=== PATIENT | female | born 1965 | race American Indian/Alaskan Native ===

== ENCOUNTER 2016-12-08 11:16 | Day surgery (SDC) | payer MEDICARE ==
[2016-12-08] MEDS ORDERED: HEPARIN 10,000 UNITS/10 ML ONE (11:57)
[2016-12-08] MEDS ORDERED: MARCAINE 0.25% INFILTRATI ONE ×2 (11:57→15:36)
[2016-12-08] MEDS ORDERED: NACL 0.9% 250ML 250 ML ONE (11:57)
[2016-12-08] MEDS ORDERED: XYLOCAINE 1% 20 mL ONE (11:57)
[2016-12-08] MEDS ORDERED: GELFOAM TP ONE (11:58)
[2016-12-08] MEDS ORDERED: NACL 0.9% 1000 ML 1,000 ML ONE (12:51)
[2016-12-08] MEDS ORDERED: ANCEF/STERILE WATER 2 GM/20 ML IV NR (13:16)
--- NOTE | 2016-12-08 13:28 | Anesthesia Day of Surgery ---
Anesthesia Day of Surgery - Day of Surgery Patient Examined: Yes Patient H&P Reviewed: Yes Patient is NPO: Yes
--- NOTE | 2016-12-08 13:31 | Anesthesia Consultation ---
Anesthesia Consult and Med Hx Date of service: 12/08/16 - Airway Anesthetic Teeth Evaluation: Poor ROM Head & Neck: Adequate Mental/Hyoid Distance: Adequate Mallampati Class: Class II Intubation Access Assessment: Probably Good - Pulmonary Exam CTA: Yes - Pre-Operative Health Status ASA Pre-Surgery Classification: ASA3 Proposed Anesthetic Plan: General - Pulmonary Hx Smoking: No - Cardiovascular System Hx Hypertension: Yes - Other Systems Hx Cancer: Yes (Right sided Colon Ca. )
[2016-12-08] MEDS ORDERED: VERSED IV NR (14:00)
[2016-12-08] MEDS ORDERED: NACL 0.9% 1000 ML 1,000 ML IV SCH (14:00)
[2016-12-08] MEDS ORDERED: SUBLIMAZE ONE (15:04)
[2016-12-08] MEDS ORDERED: XYLOCAINE MPF 2% ONE (15:04)
[2016-12-08] MEDS ORDERED: DIPRIVAN 10 MG/ML IV ONE ×2 (15:05→15:31)
[2016-12-08] MEDS ORDERED: XYLOCAINE 1% 20 mL INFILTRATI ONE (15:36)
[2016-12-08] MEDS ORDERED: NACL 0.9% IR ONE (15:36)
[2016-12-08] MEDS ORDERED: HEPARIN 10,000 UNITS/10 ML 1,000 UNIT in NACL 0.9% 250ML 250 ML IR ONE (15:38)
--- NOTE | 2016-12-08 16:17 | Discharge Summary ---
Short Stay Discharge Plan Activity: advance as tolerated Wound: per your surgeon's advice Follow up with: PRIMARY CARE, [Primary Care Provider] - 7 Days
--- NOTE | 2016-12-08 16:19 | Post Anesthesia Evaluation ---
- Post Anesthesia Evaluation Patient Participated: Yes Airway Patent: Yes Stable Respiratory Function: Yes Temp > 96.8F: Yes Pain Manageable: Yes Adequeate Hydration: Yes Anesthesia Complications: No Block Receding Appropriately: Not Applicable
--- NOTE | 2016-12-08 16:57 | Fluoroscopy Report ---
Operative chest: Port placement. Portions of the upper chest including the mediastinum or included. Port was introduced through the left subclavian vein with the tip projecting over the right atrium. Both visualized lungs appear fully inflated the mediastinal contour is unremarkable.
[2016-12-08 17:03] VITALS: BP 170/94
--- NOTE | 2016-12-09 00:16 | Discharge Summary ---
FINAL DIAGNOSIS: Colon cancer with metastasis to the liver. This patient was seen by _ who asked me to see her for insertion of subcutaneous port. This was done today, 12/08/2016. Everything went fine. The patient was discharged home. I gave a prescription for Tylenol No. 3 to be taken 1 every 4 hours p.r.n. for pain and to see me or to call me in about 10 days and to see _ for the chemotherapy that she may need. JOB# [id number] KARINA/IVET KHAN
--- NOTE | 2016-12-09 00:43 | Operative Report ---
PREOPERATIVE DIAGNOSIS: Colon cancer, for insertion of subcutaneous port as per the recommendation of Dr. QUEVEDO. POSTOPERATIVE DIAGNOSIS: Colon cancer, for insertion of subcutaneous port as per the recommendation of . PROCEDURE: Insertion of subcutaneous port via left subclavian approach with use of C-arm. ANESTHESIA: Local standby. DESCRIPTION OF PROCEDURE: With the patient in supine position, cleansed and draped in usual fashion. I made an incision in the infraclavicular aspect of the left side. The needle was inserted towards the left subclavian vein which had a got a good backflow of venous blood. A guidewire was then inserted. It went in nicely following which a pocket was created in the insertion site to accommodate the system. The system was then assembled together and then a dilator was advanced in the usual fashion with use of the wire, it went in nicely, removing the wire, leaving the sheath through which I was able to introduce the tubing that went all the way to the superior vena cava with good backflow of venous blood via the port percutaneously. I was able to have 2 stitches to anchor the port and the pectoralis fascia. Once well satisfied, we had good hemostasis. Then, the wound was closed. I used for that purpose 2 x 2 and Tegaderm and the bandage. The patient was then transferred to the recovery room in good condition. JOB# [id number] KARINA/IVET KHAN
== END 2016-12-08 17:25 | disposition home or self-care (01) ==
LOC: OR 11:16
PROVIDERS: ATTEND Surgery
DX: C18.9 Malignant neoplasm of colon, unspecified (principal); C78.7 Secondary malignant neoplasm of liver and intrahepatic bile duct; I10 Essential (primary) hypertension; Z79.899 Other long term (current) drug therapy
CPT/HCPCS: 36561; 77001; C1788; J0690; J1644; J2250; J2704; J3010; J7030; J7050; A4649

== ENCOUNTER 2016-12-25 11:52 | Emergency (ER) | payer MEDICARE ==
[2016-12-25] MEDS ORDERED: TORADOL IV ONE (12:44)
[2016-12-25] MEDS ORDERED: MORPHINE IV ONE (12:44)
[2016-12-25] MEDS ORDERED: NACL 0.9% 1000 ML 1,000 ML IV ONE (12:44)
--- NOTE | 2016-12-25 12:52 | Emergency Department Report ---
ED General Adult HPI - General Chief complaint: Neck Pain/Injury Stated complaint: NECK/BACK PAIN Time Seen by Provider: 12/25/16 12:20 Source: patient Mode of arrival: Ambulatory Limitations: No Limitations - History of Present Illness Initial comments: 51-year-old female here with complaint of left-sided neck pain and malodorous discharge from vagina. Patient states that she had colon surgery 2 months ago at [facility]. Since that time she's been doing fairly well. She has no abdominal pain or nausea or vomiting. The last 2 weeks she has noticed some foul-smelling dark drainage from her vagina. No recent intercourse. She also complains of some neck pain. She had a port placed in her left neck approximately 2 weeks ago. She has full range of motion of the neck. There's been no trauma to her neck. -: Gradual Radiation: non-radiation Consistency: constant Improves with: none Worsens with: none Associated Symptoms: denies: confusion, chest pain, cough, diaphoresis, fever/ chills, headaches, loss of appetite, malaise, nausea/vomiting, rash, seizure, shortness of breath, syncope, weakness - Related Data Home Medications Medication Instructions Recorded Confirmed Last Taken Meclizine [Antivert] 25 mg PO TID PRN 10/03/15 10/03/15 12/07/16 Verapamil HCl [Verapamil ER PM] 200 mg PO QHS 10/03/15 10/03/15 12/07/16 Lisinopril 10 mg PO 12/08/16 12/07/16 Megestrol 12/08/16 12/07/16 traMADol [Ultram 50 MG tab] 50 mg PO DAILY 12/08/16 12/08/16 12/07/16 Previous Rx's Medication Instructions Recorded Last Taken Type amLODIPine [Norvasc] 5 mg PO DAILY #30 tab 10/03/15 12/07/16 Rx Levofloxacin [Levaquin TAB] 500 mg PO QDAY #10 tablet 12/25/16 Unknown Rx metroNIDAZOLE [Flagyl] 500 mg PO Q8HR #30 tablet 12/25/16 Unknown Rx Allergies Allergy/AdvReac Type Severity Reaction Status Date / Time No Known Allergies Allergy Verified 10/02/15 20:53 ED Review of Systems ROS: Stated complaint: NECK/BACK PAIN Other details as noted in HPI Comment: All other systems reviewed and negative Constitutional: denies: chills, fever Eyes: denies: eye pain, eye discharge, vision change ENT: denies: ear pain, throat pain Respiratory: denies: cough, shortness of breath, wheezing Cardiovascular: denies: chest pain, palpitations Endocrine: no symptoms reported Gastrointestinal: denies: abdominal pain, nausea, diarrhea Genitourinary: discharge (brownish vaginal discharge). denies: urgency, dysuria Musculoskeletal: denies: back pain, joint swelling, arthralgia Skin: denies: rash, lesions Neurological: denies: headache, weakness, paresthesias Psychiatric: denies: anxiety, depression Hematological/Lymphatic: denies: easy bleeding, easy bruising ED Past Medical Hx - Past Medical History Previous Medical History?: Yes Hx Hypertension: Yes Hx of Cancer: Yes Hx Asthma: Yes - Surgical History Past Surgical History?: Yes Additional Surgical History: fingerport to left chest - Family History Family history: no significant - Social History Smoking Status: Never Smoker Substance Use Type: None - Medications Home Medications: Home Medications Medication Instructions Recorded Confirmed Last Taken Type Meclizine [Antivert] 25 mg PO TID PRN 10/03/15 10/03/15 12/07/16 History Verapamil HCl [Verapamil ER PM] 200 mg PO QHS 10/03/15 10/03/15 12/07/16 History amLODIPine [Norvasc] 5 mg PO DAILY #30 tab 10/03/15 12/07/16 Rx Lisinopril 10 mg PO 12/08/16 12/07/16 History Megestrol 12/08/16 12/07/16 History traMADol [Ultram 50 MG tab] 50 mg PO DAILY 12/08/16 12/08/16 12/07/16 History Levofloxacin [Levaquin TAB] 500 mg PO QDAY #10 tablet 12/25/16 Unknown Rx metroNIDAZOLE [Flagyl] 500 mg PO Q8HR #30 tablet 12/25/16 Unknown Rx ED Physical Exam - General Limitations: No Limitations General appearance: alert, in no apparent distress - Head Head exam: Present: atraumatic, normocephalic - Eye Eye exam: Present: normal appearance. Absent: scleral icterus, conjunctival injection - ENT ENT exam: Present: mucous membranes moist - Neck Neck exam: Present: normal inspection, tenderness (tender in trapezius ). Absent: meningismus, full ROM, lymphadenopathy, thyromegaly - Respiratory Respiratory exam: Present: normal lung sounds bilaterally. Absent: respiratory distress, wheezes, rales - Cardiovascular Cardiovascular Exam: Present: regular rate, normal rhythm. Absent: systolic murmur, diastolic murmur, rubs, gallop - GI/Abdominal GI/Abdominal exam: Present: soft, distended, normal bowel sounds, other (well- healing midline abdominal incision). Absent: tenderness, guarding, rebound - Extremities Exam Extremities exam: Present: normal inspection, normal capillary refill - Back Exam Back exam: Present: normal inspection - Neurological Exam Neurological exam: Present: alert, oriented X3 - Psychiatric Psychiatric exam: Present: normal affect, normal mood - Skin Skin exam: Present: warm, dry, intact, normal color. Absent: rash ED Course Vital Signs 12/25/16 12/25/16 12/25/16 12:01 13:00 14:25 Temperature 98.4 F Pulse Rate 74 107 H Respiratory 16 16 16 Rate Blood Pressure 146/101 Blood Pressure 127/91 [Left] O2 Sat by Pulse 100 100 Oximetry 12/25/16 14:26 Temperature Pulse Rate Respiratory 16 Rate Blood Pressure Blood Pressure [Left] O2 Sat by Pulse Oximetry ED Medical Decision Making - Lab Data Result diagrams: 12/25/16 12:54 12/25/16 12:54 Laboratory Results - last 24 hr 12/25/16 12/25/16 12/25/16 12:54 12:54 12:54 WBC 8.9 RBC 4.57 Hgb 12.4 Hct 39.7 MCV 87 MCH 27 L MCHC 31 RDW 14.5 Plt Count 257 PT INR Sodium 137 Potassium 3.9 Chloride 99.1 Carbon Dioxide 22 Anion Gap 20 BUN 8 Creatinine 0.4 L Estimated GFR > 60 BUN/Creatinine Ratio 20.00 Glucose 101 H Lactic Acid 2.20 H* Calcium 9.3 Total Bilirubin 0.40 AST 14 ALT 7 Alkaline Phosphatase 73 Total Protein 7.3 Albumin 3.9 Albumin/Globulin Ratio 1.1 Urine Color Urine Turbidity Urine pH Ur Specific [place] Urine Protein Urine Glucose (UA) Urine Ketones Urine Blood Urine Nitrite Urine Bilirubin Urine Urobilinogen Ur Leukocyte Esterase Urine WBC (Auto) Urine RBC (Auto) U Epithel Cells (Auto) Urine Bacteria (Auto) Urine Mucus 12/25/16 12/25/16 12:54 13:57 WBC RBC Hgb Hct MCV MCH MCHC RDW Plt Count PT 14.8 INR 1.17 H Sodium Potassium Chloride Carbon Dioxide Anion Gap BUN Creatinine Estimated GFR BUN/Creatinine Ratio Glucose Lactic Acid Calcium Total Bilirubin AST ALT Alkaline Phosphatase Total Protein Albumin Albumin/Globulin Ratio Urine Color Tasha Urine Turbidity Cloudy Urine pH 5.0 Ur Specific [place] 1.030 Urine Protein 100 mg/dl Urine Glucose (UA) Neg Urine Ketones Neg Urine Blood Neg Urine Nitrite Neg Urine Bilirubin Neg Urine Urobilinogen 2.0 Ur Leukocyte Esterase Lg Urine WBC (Auto) > 182.0 H Urine RBC (Auto) 175.0 U Epithel Cells (Auto) 19.0 H Urine Bacteria (Auto) 1+ Urine Mucus 3+ - Medical Decision Making 51-year-old female here with likely musculoskeletal neck pain and an increasing malodorous discharge from the vagina. She states that she had surgery 2 months ago at [facility] for colon cancer. Her neck is likely musculoskeletal pain I am believe she has any evidence of venous thrombus or infectious process. She is tender in the trapezius muscle. Her abdominal exam is unremarkable. External section of her genitalia did not demonstrate significant amount of discharge with the patient mentioned. However given her symptoms I am concerned about the possibility of a enterovaginal fistula. Plan to CT with oral and IV contrast check labs and will reassess. Labs shows a number of WBCs in the patient's urine. CT pending. Spoke with Dr. Escamilla construction supervisor for the surgeon in [place]. She agrees with assessment to have the patient follow-up this week unless there is significant infection source in the abdomen. Agent with questionable abscess versus metastatic disease on CAT scan. I think that it is possible that abscess is less likely given the patient is afebrile without significant pain long discussion with patient regarding admission versus following up with her surgeon tomorrow. She would like to follow up with her surgeon tomorrow. We'll place the patient on oral narcotics and the patient will follow up. Portions of this chart were dictated with dictation software. There may be dictation errors contained within this note. Critical care attestation.: If time is entered above; I have spent that time in minutes in the direct care of this critically ill patient, excluding procedure time. ED Disposition Clinical Impression: UTI (urinary tract infection), Abdominal pain Disposition: DC- TO HOME OR SELFCARE Is pt being admited?: No Condition: Stable Additional Instructions: Please follow up with her surgeon tomorrow. Prescriptions: Levofloxacin [Levaquin TAB] 500 mg PO QDAY #10 tablet metroNIDAZOLE [Flagyl] 500 mg PO Q8HR #30 tablet Referrals: PRIMARY CARE, [Primary Care Provider] - 3-5 Days
[2016-12-25 13:25] LABS: Hematocrit 39.7 % (30.3-42.9); Hemoglobin 12.4 gm/dl (10.1-14.3); Mean Corpuscular HGB Conc 31 % (30-34); Mean Corpuscular Hemoglobin 27 pg (28-32); Mean Corpuscular Volume 87 fl (79-97); Platelet Count 257 K/mm3 (140-440); Red Blood Count 4.57 M/mm3 (3.65-5.03); Red Cell Distribution Width 14.5 % (13.2-15.2); White Blood Count 8.9 K/mm3 (4.5-11.0)
[2016-12-25 13:35] LABS: INR 1.17 (0.87-1.13)
[2016-12-25 13:50] LABS: Alanine Aminotransferase 7 units/L (7-56); Albumin 3.9 g/dL (3.9-5); Albumin/Globulin Ratio 1.1 %; Alkaline Phosphatase 73 units/L (35-129); Anion Gap 20 mmol/L; Blood Urea Nitrogen 8 mg/dL (7-17); Calcium 9.3 mg/dL (8.4-10.2); Carbon Dioxide 22 mmol/L (22-30); Chloride 99.1 mmol/L (98-107); Glucose 101 mg/dL (65-100); Potassium 3.9 mmol/L (3.6-5.0); Sodium 137 mmol/L (137-145); Total Protein 7.3 g/dL (6.3-8.2)
[2016-12-25 14:11] LABS: Bacteria,Urine 1+ /HPF (Negative); Bilirubin,Urine NEG (Negative); Blood,Urine NEG (Negative); Ketones,Urine NEG (Negative); Leukocyte Esterase,Urine LG (Negative); Mucus,Urine 3+ /HPF; Nitrite,Urine NEG (Negative)
[2016-12-25 14:12] LABS: WBC,Urine > 182.0 /HPF (0.0-6.0)
[2016-12-25] MEDS ORDERED: LEVAQUIN PO ONE (14:19)
[2016-12-25] MEDS ORDERED: NACL ONE (15:06)
[2016-12-25 16:06] LABS: Anisocytosis 1+; Basophils % (Manual) 0 % (0.0-1.8); Blastocytes % (Manual) 0 %; Diff Status Complete; Platelet Estimate Consistent w Auto
--- NOTE | 2016-12-25 16:35 | Cat Scan Report ---
FINAL REPORT EXAM: CT ABDOMEN PELVIS W CON HISTORY: abdominal pain, increased vaginal discharge TECHNIQUE: CT of the abdomen and pelvis with oral and intravenous contrast PRIORS: None. FINDINGS: Small left pleural effusion The dome of the liver there is a 0.6 centimeter low-density focus with irregular margins measuring 0.8 centimeters. Additional of similar appearing low-density foci are present with 2 lesions seen at the left lobe and 2 additional foci present within the right lobe. These are sub centimeter in size.. There is an intermediate density complex appearing subcapsular hepatic fluid collection There is large complex mass within the left upper quadrant of the abdomen measuring approximately 12.3 by 9.3 x 7.8 centimeters. The mass extends along the left lateral abdominal wall and displaces the spleen with subcapsular component surrounding the spleen and possible splenic invasion. There is a left anterior paramedian abdominal wall mass measuring 2.1 x 2.8 centimeters extending into the left rectus abdominus muscle. Within the left upper pelvis there additional irregular mass extending into the internal and external oblique musculature. Just inferior to this within the anterior deep subcutaneous tissues there is a 1.0 centimeter similar appearing focus. No free-fluid or free air identified Kidneys demonstrate symmetric contrast enhancement. No retroperitoneal mass identified. No evidence for adenopathy. No pancreatic masses are seen. The large left upper quadrant mass abuts and displaces the tail of the pancreas. No evidence for colonic or small bowel distention. No free air identified. Urinary bladder is unremarkable Anterior to the uterus at the fundus there is a dilated serpiginous structure could reflect congested pelvic vein versus hydrosalpinx. Multiple enhancing foci are present within the uterine myometrium largest approximately 1 centimeter. Could reflect enhancing fibroids versus microabscess. IMPRESSION: Multiple intra-abdominal and abdominal wall masses as described above. Appearance is most suggestive of multifocal abscess collections. Neoplasm not entirely excluded. Subcapsular complex perihepatic collection. Multiple low-density foci within the liver also suspicious for abscess. Very large left upper quadrant complex mass again suspicious for abscess with splenic pericapsular and likely intrasplenic extension Multiple anterior abdominal wall collections as described above Serpiginous structure seen at the uterine body could reflect congested pelvic veins versus hydrosalpinx. Multiple enhancing centimeter to subcentimeter foci noted within myometrium and sub serosal body of the uterus. PID with multiple abscess collections is a significant diagnostic consideration Small left pleural effusion noted
[2016-12-25 18:44] VITALS: BP 140/89
== END 2016-12-25 17:55 | disposition home or self-care (01) ==
LOC: ED 11:52
DX: N39.0 Urinary tract infection, site not specified (principal); R10.9 Unspecified abdominal pain; I10 Essential (primary) hypertension; J45.909 Unspecified asthma, uncomplicated; Z85.9 Personal history of malignant neoplasm, unspecified
CPT/HCPCS: 36415; 74177; 80053; 81001; 82140; 85007; 85025; 85610; 87040; 96361; 96374; 96375; 99284; J1885; J2270; J7030; Q9967

== ENCOUNTER 2017-01-07 12:40 | Emergency (ER) | payer MEDICARE ==
[2017-01-07 14:16] LABS: Basophils % (Auto) 0.5 % (0.0-1.8); Eosinophils % (Auto) 0.9 % (0.0-4.3); Hematocrit 41.6 % (30.3-42.9); Hemoglobin 13.6 gm/dl (10.1-14.3); Mean Corpuscular HGB Conc 33 % (30-34); Mean Corpuscular Hemoglobin 28 pg (28-32); Mean Corpuscular Volume 86 fl (79-97); Platelet Count 225 K/mm3 (140-440); Red Blood Count 4.84 M/mm3 (3.65-5.03); Red Cell Distribution Width 13.7 % (13.2-15.2); White Blood Count 8.9 K/mm3 (4.5-11.0)
[2017-01-07 14:21] LABS: Alanine Aminotransferase 6 units/L (7-56); Albumin/Globulin Ratio 1.3 %; Alkaline Phosphatase 71 units/L (35-129); Anion Gap 23 mmol/L; Blood Urea Nitrogen 11 mg/dL (7-17); Calcium 9.1 mg/dL (8.4-10.2); Carbon Dioxide 20 mmol/L (22-30); Glucose 184 mg/dL (65-100); Lipase 19 units/L (13-60); Potassium 3.5 mmol/L (3.6-5.0); Sodium 138 mmol/L (137-145)
[2017-01-07 14:25] LABS: INR 1.21 (0.87-1.13)
[2017-01-07 14:26] LABS: Partial Thromboplastin Time 27.6 Sec. (24.2-36.6)
[2017-01-07] MEDS ORDERED: NACL 0.9% 1000 ML 1,000 ML IV ONE (20:22)
[2017-01-07] MEDS ORDERED: ZOFRAN IV ONE (20:22)
[2017-01-07] MEDS ORDERED: MORPHINE IV ONE (20:22)
--- NOTE | 2017-01-07 20:26 | Emergency Department Report ---
ED Abdominal Pain HPI - General Chief Complaint: Abdominal Pain Stated Complaint: BLEEDING Time Seen by Provider: 01/07/17 19:04 Source: patient Mode of arrival: Ambulatory Limitations: No Limitations - History of Present Illness Initial Comments: 51 years old -[place] female history of colon cancer diagnosed 3 months ago at [facility] and make an and she had surgery that time she is on chemotherapy she presented today with abdominal pain started 3 days ago nausea and vomiting no bowel movement since last 3 days she also complaining of a knot on her left upper quadrant. She denied any fever. Her son mentioned that she has not been eating or drinking well in the last few days. Patient also mentioned that she is been having vaginal bleeding for the last 5 days. MD Complaint: abdominal pain -: days(s) Location: diffuse Quality: cramping - Related Data Home Medications Medication Instructions Recorded Confirmed Last Taken Verapamil HCl [Verapamil ER PM] 200 mg PO QHS 10/03/15 01/07/17 12/07/16 Lisinopril 10 mg PO DAILY 12/08/16 01/07/17 12/07/16 traMADol [Ultram 50 MG tab] 50 mg PO DAILY 12/08/16 01/07/17 12/07/16 Previous Rx's Medication Instructions Recorded Last Taken Type amLODIPine [Norvasc] 5 mg PO DAILY #30 tab 10/03/15 12/07/16 Rx Levofloxacin [Levaquin TAB] 500 mg PO QDAY #10 tablet 12/25/16 Unknown Rx Oxycodone HCl/Acetaminophen 1 each PO Q6HR PRN #20 tablet 12/25/16 1 Day Ago Rx [Percocet 7.5/325 mg] Promethazine [Phenergan TAB] 25 mg PO Q6HR PRN #20 tab 12/25/16 1 Day Ago Rx metroNIDAZOLE [Flagyl] 500 mg PO Q8HR #30 tablet 12/25/16 1 Day Ago Rx Ondansetron [Zofran Odt] 4 mg PO Q8HR PRN #14 tab.rapdis 01/08/17 Unknown Rx oxyCODONE /ACETAMINOPHEN [Percocet 1 tab PO Q6HR PRN #20 tablet 01/08/17 Unknown Rx 5/325] Allergies Allergy/AdvReac Type Severity Reaction Status Date / Time No Known Allergies Allergy Verified 10/02/15 20:53 ED Review of Systems ROS: Stated complaint: BLEEDING Other details as noted in HPI Comment: All other systems reviewed and negative Constitutional: denies: chills, fever Respiratory: denies: cough, shortness of breath Cardiovascular: denies: chest pain, palpitations Gastrointestinal: abdominal pain, nausea, vomiting, constipation. denies: diarrhea, hematemesis, melena, hematochezia Neurological: denies: headache ED Past Medical Hx - Past Medical History Hx Hypertension: Yes Hx Asthma: Yes Additional medical history: COLON CA-2017, CHEMO, ANEMIA WITH BLOOD TRANSFUSION - Surgical History Additional Surgical History: fingerport to left chest, COLON RESECTION 08/2016 - Social History Smoking Status: Never Smoker Substance Use Type: None - Medications Home Medications: Home Medications Medication Instructions Recorded Confirmed Last Taken Type Verapamil HCl [Verapamil ER PM] 200 mg PO QHS 10/03/15 01/07/17 12/07/16 History amLODIPine [Norvasc] 5 mg PO DAILY #30 tab 10/03/15 01/07/17 12/07/16 Rx Lisinopril 10 mg PO DAILY 12/08/16 01/07/17 12/07/16 History traMADol [Ultram 50 MG tab] 50 mg PO DAILY 12/08/16 01/07/17 12/07/16 History Levofloxacin [Levaquin TAB] 500 mg PO QDAY #10 tablet 12/25/16 01/07/17 Unknown Rx Oxycodone HCl/Acetaminophen 1 each PO Q6HR PRN #20 tablet 12/25/16 01/07/17 1 Day Ago Rx [Percocet 7.5/325 mg] Promethazine [Phenergan TAB] 25 mg PO Q6HR PRN #20 tab 12/25/16 01/07/17 1 Day Ago Rx metroNIDAZOLE [Flagyl] 500 mg PO Q8HR #30 tablet 12/25/16 01/07/17 1 Day Ago Rx Ondansetron [Zofran Odt] 4 mg PO Q8HR PRN #14 tab.rapdis 01/08/17 Unknown Rx oxyCODONE /ACETAMINOPHEN [Percocet 1 tab PO Q6HR PRN #20 tablet 01/08/17 Unknown Rx 5/325] ED Physical Exam - General Limitations: No Limitations General appearance: alert, other (dehydrated) - Head Head exam: Present: atraumatic - Eye Eye exam: Present: normal appearance - ENT ENT exam: Present: normal exam, mucous membranes dry - Neck Neck exam: Present: normal inspection. Absent: tenderness, meningismus, lymphadenopathy - Respiratory Respiratory exam: Present: normal lung sounds bilaterally. Absent: respiratory distress, wheezes, rales, rhonchi - Cardiovascular Cardiovascular Exam: Present: tachycardia, normal heart sounds - GI/Abdominal GI/Abdominal exam: Present: soft, tenderness (diffuse), diminished bowel sounds , mass (left upper quadrant). Absent: distended, guarding, rebound, rigid, bruit, pulsatile mass, hernia - Back Exam Back exam: Present: normal inspection. Absent: CVA tenderness (R), CVA tenderness (L) - Neurological Exam Neurological exam: Present: alert, oriented X3, CN II-XII intact, normal gait - Psychiatric Psychiatric exam: Present: normal mood - Skin Skin exam: Present: warm, dry ED Course Vital Signs 01/07/17 01/07/17 01/07/17 13:14 17:43 17:49 Temperature 98.6 F Pulse Rate 116 H Respiratory 20 Rate Blood Pressure 114/78 127/87 127/87 O2 Sat by Pulse 99 98 Oximetry 01/07/17 01/07/17 01/07/17 17:51 18:00 18:21 Temperature Pulse Rate 103 H 111 H Respiratory 16 14 Rate Blood Pressure 130/82 127/87 O2 Sat by Pulse 100 98 100 Oximetry 01/07/17 01/07/17 01/07/17 18:41 19:00 19:20 Temperature Pulse Rate 103 H 105 H Respiratory 12 10 L 17 Rate Blood Pressure 127/87 127/76 O2 Sat by Pulse 100 100 Oximetry 01/07/17 01/07/17 01/07/17 19:21 19:41 21:01 Temperature Pulse Rate 109 H 110 H Respiratory 17 19 Rate Blood Pressure 127/76 127/76 127/76 O2 Sat by Pulse 100 100 81 L Oximetry 01/07/17 01/07/17 01/07/17 21:31 21:35 21:41 Temperature Pulse Rate 102 H 108 H Respiratory 16 17 15 Rate Blood Pressure 127/76 127/76 O2 Sat by Pulse 100 100 Oximetry 01/07/17 01/07/17 01/07/17 22:00 22:31 23:00 Temperature Pulse Rate 107 H 110 H 105 H Respiratory 11 L 20 19 Rate Blood Pressure 120/77 120/77 140/88 O2 Sat by Pulse 99 100 100 Oximetry 01/07/17 01/08/17 01/08/17 23:31 00:01 00:31 Temperature Pulse Rate 127 H 101 H 101 H Respiratory 33 H 14 17 Rate Blood Pressure 140/88 140/88 140/88 O2 Sat by Pulse 100 100 100 Oximetry 01/08/17 01/08/17 01/08/17 01:00 01:31 02:01 Temperature Pulse Rate 101 H 91 H 99 H Respiratory 16 15 16 Rate Blood Pressure 108/56 108/56 108/56 O2 Sat by Pulse 99 100 100 Oximetry 01/08/17 01/08/17 01/08/17 02:30 03:00 03:40 Temperature Pulse Rate 97 H 94 H Respiratory 14 14 Rate Blood Pressure 108/56 118/64 118/64 O2 Sat by Pulse 100 100 100 Oximetry 01/08/17 04:00 Temperature Pulse Rate Respiratory Rate Blood Pressure 120/74 O2 Sat by Pulse 100 Oximetry - Reevaluation(s) Reevaluation #1: 01/08/17 04:33 Patient stated that she is feeling much better no nausea no vomiting her pain is significantly subsided. Informed the patient about her CT abdomen and pelvis results also her ultrasound and informed to follow-up with her oncologist as scheduled. I also advised to follow-up with gynecology for her uterine fibroid. ED Medical Decision Making - Lab Data Result diagrams: 01/07/17 13:26 01/07/17 13:26 Critical care attestation.: If time is entered above; I have spent that time in minutes in the direct care of this critically ill patient, excluding procedure time. ED Disposition Clinical Impression: Abdominal pain, Metastatic colon cancer in female Disposition: DC-01 TO HOME OR SELFCARE Is pt being admited?: No Does the pt Need Aspirin: No Condition: Stable Instructions: Abdominal Pain (ED) Referrals: PRIMARY CARE, [Primary Care Provider] - 3-5 Days
--- NOTE | 2017-01-07 20:43 | Ultrasound Report ---
FINAL REPORT EXAM: US TRANSVAGINAL HISTORY: postmenopausal vag bleeding TECHNIQUE: Ultrasound obstetrical transvaginal PRIORS: None. FINDINGS: Uterus measures 6.2 x 3.4 x 5.0 centimeters At the fundus of the uterus there is a subserosal anterior fibroid 3.0 centimeters in transverse diameter. There is additional fundal subserosal fibroid measuring 1.2 centimeters. There is an intramural fibroid seen posteriorly measuring 1.8 centimeters. Endometrial stripe is 0.36 centimeters Right ovary 1.9 x 1.0 x 0.9 centimeters The left ovary is 1.6 x 1.2 x 1.0 centimeters. No abnormal mass or cyst identified No free fluid is identified within the cul-de-sac IMPRESSION: Uterine fibroids
--- NOTE | 2017-01-07 20:45 | Ultrasound Report ---
FINAL REPORT EXAM: US PELVIC COMPLETE HISTORY: postmenopausal vag bleeding TECHNIQUE: PRIORS: None. FINDINGS: Uterus measures 6.2 x 3.4 x 5.0 centimeters At the fundus of the uterus there is a subserosal anterior fibroid 3.0 centimeters in transverse diameter. There is additional fundal subserosal fibroid measuring 1.2 centimeters. There is an intramural fibroid seen posteriorly measuring 1.8 centimeters. Endometrial stripe is 0.36 centimeters Right ovary 1.9 x 1.0 x 0.9 centimeters The left ovary is 1.6 x 1.2 x 1.0 centimeters. No abnormal mass or cyst identified No free fluid is identified within the cul-de-sac IMPRESSION: Uterine fibroids
[2017-01-08] MEDS ORDERED: REGLAN ONE (00:06)
[2017-01-08] MEDS ORDERED: REGLAN IV ONE (00:08)
[2017-01-08] MEDS ORDERED: NACL ONE (03:15)
--- NOTE | 2017-01-08 03:56 | Cat Scan Report ---
FINAL REPORT PROCEDURE: CT ABDOMEN PELVIS W CON TECHNIQUE: Computerized axial tomography of the abdomen and pelvis was performed after the IV injection of iodinated nonionic contrast. HISTORY: abd pain, colon cancer s/p surgery 3 month ago COMPARISON: 12/25/2016 FINDINGS: Visualized lower thorax: No significant abnormality. Liver: Multiple hypodense intraparenchymal liver and subhepatic peripheral nodules are again identified and unchanged from prior study suspicious for metastatic malignancy.. Spleen: There is a perisplenic mass causing deformity of the spleen unchanged in size from prior study consistent with metastatic mass.. Gallbladder and biliary system: Normal. Pancreas: Normal. Adrenals: Normal. Kidneys: Normal. GI tract: There is no bowel obstruction, colitis or enteritis. The appendix is normal. Lymph nodes and mesentery: There is a mass in the left upper quadrant of the abdomen measuring 9 x 9 centimeters. This is unchanged from the prior study and consistent with metastatic malignancy. There are additional smaller omental and mesenteric masses similar to prior study also consistent with metastatic malignancy.. Vasculature: Normal. Bladder: Normal. Reproductive organs: Normal. Peritoneum: There is no ascites or free air.. Musculoskeletal structures: No significant abnormality. Other: Multiple anterior abdominal wall masses are again identified suspicious for metastatic malignancy.. IMPRESSION: Multiple hypodense intraparenchymal liver and subhepatic peripheral nodules are again identified and unchanged from prior study suspicious for metastatic malignancy.. There is a perisplenic mass causing deformity of the spleen unchanged in size from prior study consistent with metastatic mass.. There is no bowel obstruction, colitis or enteritis. The appendix is normal. There is a mass in the left upper quadrant of the abdomen measuring 9 x 9 centimeters. This is unchanged from the prior study and consistent with metastatic malignancy. There are additional smaller omental and mesenteric masses similar to prior study also consistent with metastatic malignancy.. There is no ascites or free air. There is no abscess.. Multiple anterior abdominal wall masses are again identified suspicious for metastatic malignancy..
[2017-01-08 04:23] VITALS: BP 120/74
[2017-01-08 05:26] LABS: Bilirubin,Urine NEG (Negative); Blood,Urine MOD (Negative); Ketones,Urine TR mg/dL (Negative); Leukocyte Esterase,Urine NEG (Negative); Mucus,Urine FEW /HPF; Nitrite,Urine NEG (Negative); Urobilinogen,Urine < 2.0 mg/dL (<2.0)
== END 2017-01-08 06:27 | disposition home or self-care (01) ==
LOC: ED 12:40
DX: C18.9 Malignant neoplasm of colon, unspecified (principal); C79.89 Secondary malignant neoplasm of other specified sites; I10 Essential (primary) hypertension; J45.909 Unspecified asthma, uncomplicated
CPT/HCPCS: 36415; 74177; 76830; 76856; 80053; 81001; 82140; 83690; 85025; 85610; 85730; 86850; 86900; 86901; 96361; 96374; 96375; 99284; J2270; J2405; J2765; J7030; Q9967